=== PATIENT | female | born 1960 | race Caucasian/White ===

== ENCOUNTER → 2017-05-26 | Outpatient (CLI) | payer MEDICAID | LOC: LGSMG 16:40 | DX: G40.209 Localization-related (focal) (partial) symptomatic epilepsy and epileptic syndromes with complex partial seizures, not intractable, without status epilepticus (principal) ==

== ENCOUNTER → 2017-05-31 | Outpatient (CLI) | payer MEDICAID ==
--- NOTE | ~2017-05-31 | NDGEN ---
PATIENT'S NAME: DONNA PHAN [facility] AGE: 57 Y [address] ROOM: [place] [id number] LOCATION: [facility] ADMIT DATE: 05/31/2017 Neurodiagnostics DISCHARGE DATE: FAMILY PHYSICIAN: Colton Davis MD ATTENDING PHYSICIAN: MAG NEW PROCEDURE: ELECTROENCEPHALOGRAM DATE OF PROCEDURE: 05/31/2017 TIME OF STUDY: 1:52 p.m. FINDINGS: This was a 20-lead EEG, which was done with hyperventilation and photic stimulation. The patient appeared to be awake initially, but the comments said that the patient fell asleep during the study. The general background rhythm remained stable showing a normal 10 hertz alpha rhythm with a normal sinusoidal pattern throughout. With either eyes open or closed, the amplitudes did not change, and hyperventilation and photic stimulation did not alter the amplitudes or the underlying background rhythm. At no time was there any epileptiform features seen, and no seizures were recorded. IMPRESSION: Normal electroencephalogram. MD BRITTANY MITCHELL/mely /[id number] dtt: 06/14/17 1642 VIRGEN JASON R. dtd: 05/31/17 1810
== END | disposition disaster alternative care site (69) ==
LOC: GNEU 12:43
DX: G40.209 Localization-related (focal) (partial) symptomatic epilepsy and epileptic syndromes with complex partial seizures, not intractable, without status epilepticus (principal)